=== PATIENT | male | born 1960 | race Caucasian/White ===

== ENCOUNTER 2020-04-22 14:07 | Emergency (ER) | payer OTHER ==
[~2020-04-22] VITALS: Ht 177.8 cm; Wt 95.3 kg
--- NOTE | 2020-04-22 14:51 | NUR ---
ED Nurse Note: pt presents to ED seeking Regeneron infusion. he was sent by his Dr, Dr. Newsome. pt is c/o SOB and cough, last medicated at 1100 with tylenol. pt is also c/o 5/10 GREEN px.
--- NOTE | 2020-04-22 14:53 | NUR ---
ED Nurse Note: pt tested (+) 6 days ago
[2020-04-22 14:54] VITALS: BP 145/92
--- NOTE | 2020-04-22 14:58 | Emergency Room Report ---
History of Present Illness General Chief Complaint: Flu Like Symptoms Source: Patient Present Illness HPI Disclaimer: Please note that this report is being documented using DRAGON technology. This can lead to erroneous entry secondary to incorrect interpretation by the dictating instrument. HPI: 59-year-old male history of hypertension, hyperlipidemia, obesity presents to ED at the request of his PMD requesting Regeneron infusion. Patient tested positive for COVID-19 on 04/17 at [facility]. He is on azithromycin, hydroxychloroquine and prednisone started by his PMD, Dr. Newsome. Reports low- grade fevers, shortness of breath and dry cough. Denies chest pain, palpitations, nausea, vomiting, diarrhea or other symptoms at this time. PMH: Obesity, hypertension, hyperlipidemia PSH: Reviewed Allergies: Reviewed Social Hx: Reviewed Allergies: Coded Allergies: No Known Allergies (Unverified , 04/22/20) COVID-19 Screening Contact w/high risk pt: No Experienced COVID-19 symptoms?: Yes COVID-19 Testing performed [employer]: Yes COVID-19 Screening: Positive COVID-19 COVID-19 Testing Source: 04/13 (+) Nursing Documentation-PMH Hx Hypertension: Yes Review of Systems All Other Systems: negative except mentioned in HPI Physical Exam Vital Signs Date Time Temp Pulse Resp B/P (MAP) Pulse Ox O2 Delivery O2 Flow Rate FiO2 04/22/20 14:18 98.8 116 18 145/92 (109) 95 Room Air General: Awake and alert, no acute distress HEENT: NC/AT. EOMI. Resp: Normal work of breathing, no wheezing, intermittent dry cough Skin: Intact. No abrasions, laceration or rash over the exposed skin MSK: Normal tone and bulk. Moving all extremities. No obvious deformity. Neuro: Awake and alert. 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 He meets age and risk factor criteria having tested positive for COVID-19 at [facility] on 04/17. He is already taking hydroxychloroquine, prednisone and azithromycin. No respiratory distress. No obvious pneumonia on chest x-ray. He meets criteria for monoclonal antibody infusion. Patient has read and understands risks of a ge neral infusion and consented to proceed. Received transfusion over 1 hour. No adverse reactions noted. He did have a headache which was treated with Tylenol and headache resolved. No other complaints at this time. He feels well and stable for outpatient follow-up. Instructed to return with new or worsening symptoms. He understands and agrees with this treatment plan. Chest X-Ray Diagnostic Results Chest X-Ray Diagnostic Results : Chest X-Ray Ordered: Yes # of Views/Limited/Complete: 1 View Indication: Shortness of Breath EP Interpretation: Yes Interpretation: no consolidation, no effusion, no pneumothorax Impression: No acute disease Electronically Signed by: Electronically signed by Dr. Charles Gomez MD Last Vital Signs Date Time Temp Pulse Resp B/P (MAP) Pulse Ox O2 Delivery O2 Flow Rate FiO2 04/22/20 14:54 98.8 18 145/92 95 Room Air 04/22/20 14:54 116 Disposition: HOME, SELF-CARE Condition: Stable Referrals: NON PHYSICIAN (PCP) Charles Gomez MD Apr 22, 2020 14:57
[2020-04-22] MEDS ORDERED: Regeneron EUA MISC ONE (15:00)
[2020-04-22] MEDS ORDERED: Regeneron EUA 2,400 MG in NS 255 ML IVPB SCH (15:00)
--- NOTE | 2020-04-22 16:20 | NUR ---
ED Nurse Note: infusion started
--- NOTE | 2020-04-22 16:40 | NUR ---
ED Nurse Note: pt tolerating infusion well, no adverse reaction noted
--- NOTE | 2020-04-22 17:20 | NUR ---
ED Nurse Note: infusion finished, no adverse reaction noted
--- NOTE | 2020-04-22 18:24 | NUR ---
Alicia pryor in EDM - 04/22/20 at 1825 by QLE ED Nurse Note: pt has fever of 101.2, ERMD notified
--- NOTE | 2020-04-22 18:25 | NUR ---
ED Nurse Note: pt c/o "severe" SALUD GREEN notified
[2020-04-22] MEDS ORDERED: Acetaminophen 500mg (ES) tab ORAL ONE (18:30)
--- NOTE | 2020-04-22 18:45 | NUR ---
ED Nurse Note: pt reports improvement of GREEN, is concerned about O2 saturation, his O2 saturation is 94% on RA, he is speaking full sentences, explained to pt that he is stable for d/c, pt still asking questions and wants to be admitted with his twin brother. SALUD notified.
--- NOTE | 2020-04-22 19:30 | NUR ---
ED Nurse Note: highest recording of Spo2 is 95% on RA for pt, pt became tearful about discharge. RN and secondary RN at pt bedside using talk therapy to console pt. he seems to be less distraught, signed d/c paperwork
[2020-04-22 20:00] VITALS: BP 145/92
--- NOTE | 2020-04-22 20:00 | NUR ---
ER DISCHARGE NOTE: Patient is cleared to be discharged per ERMD, pt is aox4, on room air, with stable vital signs. pt was given dc and prescription instructions, pt was able to verbalize understanding, pt id band and iv site removed without complications. pt is able to ambulate with steady gait. pt took all belongings.
--- NOTE | 2020-04-24 08:05 | Diagnostic Imaging Report ---
EXAM: XR Chest, 1 View CLINICAL HISTORY: Shortness of breath. TECHNIQUE: Frontal view of the chest. COMPARISON: No previous study. FINDINGS: Lungs: Unremarkable. No consolidation. Pleural space: No pleural effusions. No pneumothorax. Heart: Cardiomegaly per Mediastinum: Unremarkable. Bones/joints: The ribs are grossly unremarkable. Thoracic spine is grossly unremarkable. Other findings: Mild hypoaeration. IMPRESSION: 1. Mild hypoaeration. 2. Mild cardiomegaly. 3. No pleural effusions.
== END 2020-04-22 20:00 | disposition home or self-care (01) ==
LOC: EMR 14:52
DX: U07.1 COVID-19 (principal); R50.9 Fever, unspecified; R06.02 Shortness of breath; R05 Cough; I10 Essential (primary) hypertension; E78.5 Hyperlipidemia, unspecified; E66.9 Obesity, unspecified; Z68.30 Body mass index [BMI] 30.0-30.9, adult
CPT/HCPCS: 71045; 96365; 99284; J7050; Q0243